=== PATIENT | male | born 1970 | race Caucasian/White ===

== ENCOUNTER 2021-08-17 06:20 | Outpatient (REF) | payer OTHER, SELFPAY ==
[2021-08-17 11:36] LABS: Hematocrit 44.2 % (42-52); Mean Corpuscular HGB Conc 33.9 g/dl (31.0-36.0); Mean Corpuscular Hemoglobin 29.6 pg (27.0-33.0); Mean Corpuscular Volume 87.4 fL (80-98); Mean Platelet Volume 11.8 fL (9.4-12.4); Platelet Count 193 X10*3/uL (160-400); Red Blood Count 5.06 X10*6/uL (4.60-5.80); Red Cell Distribution Width 13.1 % (11.0-16.0); White Blood Count 7.7 X10*3/uL (4.8-10.8)
[2021-08-17 11:43] LABS: Appearance Urine CLEAR; Color Urine YELLOW; Glucose Urine UA NEG (NEG); Leukocyte Esterase Urine NEG (NEG); Nitrite Urine NEG (NEG); Urine Blood NEG (NEG); Urine Ketones NEG (NEG); Urine Protein NEG (NEG-TRACE)
[2021-08-17 12:02] LABS: Alanine Aminotransferase 18 U/L (0-40); Albumin Level 4.6 g/dL (3.5-5.0); Alkaline Phosphatase 47 U/L (39-117); Anion Gap 11 (12-20); Aspartate Amino Transferase 19 U/L (5-37); Bilirubin Total 0.8 mg/dL (0.0-1.0); Blood Urea Nitrogen 20 mg/dL (9-16); Calcium 9.6 mg/dL (8.4-10.2); Carbon Dioxide 29 mmol/L (22-29); Chloride 107 mmol/L (96-108); Cholesterol 177 mg/dL; Estimated Glomerular Filt Rate > 60; Glucose Fasting 101 mg/dL (60-99); HDL Cholesterol 56 mg/dL; LDL Cholesterol Calculated 107 mg/dl; Potassium 4.9 mmol/L (3.3-5.1); Sodium 142 mmol/L (135-145); Total Protein 6.8 g/dL (6.5-8.0); Triglycerides 71 mg/dL
[2021-08-17 12:11] LABS: Prostate Specific Antigen Scr 0.74 ng/mL (<0.05-4.0)
== END 2021-08-17 06:21 | disposition home or self-care (01) ==
LOC: HO.HMGCLDS 06:20
PROVIDERS: PCP Internal Medicine; Visit Provider Internal Medicine
DX: Z00.00 Encounter for general adult medical examination without abnormal findings (principal); Z12.5 Encounter for screening for malignant neoplasm of prostate; N40.0 Benign prostatic hyperplasia without lower urinary tract symptoms
CPT/HCPCS: 36415; 80053; 80061; 81003; 84153; 85027

== ENCOUNTER 2022-08-30 07:21 | Outpatient (REF) | payer OTHER, SELFPAY ==
[2022-08-30 12:28] LABS: Alanine Aminotransferase 18 U/L (0-40); Albumin Level 4.4 g/dL (3.5-5.0); Alkaline Phosphatase 55 U/L (39-117); Anion Gap 13 (12-20); Aspartate Amino Transferase 23 U/L (5-37); Bilirubin Total 0.8 mg/dL (0.0-1.0); Blood Urea Nitrogen 14 mg/dL (9-16); Calcium 9.6 mg/dL (8.4-10.2); Carbon Dioxide 28 mmol/L (22-29); Chloride 105 mmol/L (96-108); Cholesterol 172 mg/dL; Estimated Glomerular Filt Rate > 60; Glucose Fasting 103 mg/dL (60-99); HDL Cholesterol 51 mg/dL; LDL Cholesterol Calculated 105 mg/dl; Potassium 5.4 mmol/L (3.3-5.1); Sodium 141 mmol/L (135-145); Total Protein 6.8 g/dL (6.5-8.0); Triglycerides 82 mg/dL
[2022-08-30 12:30] LABS: PSA,Total (Free>4and<10) 1.58 ng/mL (0.00-4.00)
== END 2022-08-30 07:22 | disposition home or self-care (01) ==
LOC: HO.HMGCLDS 07:21
PROVIDERS: PCP Internal Medicine; Visit Provider Internal Medicine
DX: Z00.00 Encounter for general adult medical examination without abnormal findings (principal); Z12.5 Encounter for screening for malignant neoplasm of prostate; I10 Essential (primary) hypertension
CPT/HCPCS: 36415; 80048; 80053; 80061; 84153

== ENCOUNTER 2022-09-09 06:16 | Outpatient (REF) | payer OTHER, SELFPAY ==
[2022-09-09 11:25] LABS: Potassium 5.1 mmol/L (3.3-5.1)
== END 2022-09-09 06:17 | disposition home or self-care (01) ==
LOC: HO.HMGCLDS 06:16
PROVIDERS: PCP Internal Medicine; Visit Provider Internal Medicine
DX: I10 Essential (primary) hypertension (principal)
CPT/HCPCS: 36415; 84132

== ENCOUNTER 2022-10-04 07:55 | Outpatient (REF) | payer OTHER, SELFPAY ==
--- NOTE | 2022-10-04 11:20 | PFT_ITS ---
Forced vital capacity 92%, FEV1 76%. FEV1/FVC ratio is 64. XAD12-82 is 41% and MVV 82%. Post bronchodilator therapy, there is significant improvement in FEV1 and BYI94-98. Total lung capacity 102%. Residual volume 124%. Diffusion capacity is 80%. CONCLUSION: Sias-ca-rknyovoa degree of obstructive airway disorder with almost complete reversibility after bronchodilator therapy. These findings are consistent with diagnosis of bronchial asthma. Clinical correlation is recommended. MD [facility] / [id number]
== END 2022-10-04 07:56 | disposition home or self-care (01) ==
LOC: HO.RESP 07:55
PROVIDERS: Visit Provider Internal Medicine
DX: J45.909 Unspecified asthma, uncomplicated (principal)
CPT/HCPCS: 94060; 94727; 94729

== ENCOUNTER 2024-02-03 08:49 | Outpatient (AMB) | payer OTHER, SELFPAY ==
[2024-02-03 08:51] VITALS: BP 126/80; PULSE 52; O2SAT 97; BMI 22.4
--- NOTE | 2024-02-03 08:51 | A.OFFPC_ITS ---
Vital Signs 02/03/24 08:51 Height 6 ft 1 in Weight 170 lb BMI 22.4 BP 126/80 Blood Pressure Location Lt brachial Position Sitting Pulse 52 Pulse Source Pulse Oximeter Pulse Oximetry (%) 97 Oxygen Delivery Method Room Air Intake Visit Reasons: Mole on the abdomen changing size itchy Intake Note: Pt is here today for a sick visit. Pt c/o mole on his abdomen. Allergies No Known Allergies Allergy (Verified 02/03/24 08:53) Medication List - Last Reconciled 02/03/24 by Jayde Kate MD albuterol sulfate 90 mcg/actuation (ProAir HFA) 1 inh inhalation QID fluticasone propion-salmeterol 250-50 mcg/dose 1 inh inhalation BID lisinopril 5 mg PO DAILY Tobacco use date assessed: 02/03/24 Dental Screening Dental Screen Date: 02/03/24 Did you have a dental visit in the last 12 months?: Yes Did you have a dental problem in the last 6 months where you did not have access to dental care?: No Was dental information given to patient?: Patient has dentist HPI Mole on the abdomen changing size itchy HPI Details Patient complains of growing skin lesionon the right side on the abdomen. He was evaluated 2 years ago by pediatric audiologist and was told that it was a benign growth. The lesion has been growing recently, becoming irritated, itchy and red. there is no bleeding at the site. Asthma is stable on fluticasone/salmeterol. [facility] Medical History Annual physical exam Asthma BPH (benign prostatic hyperplasia) HTN (hypertension) Surgical History H/O colonoscopy No pertinent past surgical history Family History Father No problems noted. Mother No problems noted. Brother No problems noted. Son No problems noted. Daughter No problems noted. Social History Housing: House Patient Tobacco Use Status: Never used Tobacco e-Cigarette/Vaping Use: Never Used Second Hand Smoke Exposure: No Current occupational status: employed Cognitive needs: No Hearing needs: No Vision needs: Yes Questionnaire PHQ-9 Over the last 2 weeks, how often have you been bothered by any of the following problems? 1. Little interest or pleasure in doing things: not at all 2. Feeling down, depressed, or hopeless: not at all 3. Trouble falling or staying asleep, or sleeping too much: several days 4. Feeling tired or having little energy: several days 5. Poor appetite or overeating: not at all 6. Feeling bad about yourself - or that you are a failure or have let yourself or your family down: not at all 7. Trouble concentrating on things, such as reading the newspaper or watching television: not at all 8. Moving or speaking so slowly that other people could have noticed. Or the opposite - being so fidgety or restless that you have been moving around a lot more than usual: not at all 9. Thoughts that you would be better off or of hurting yourself in some way: not at all Total score: 2 Depression Screening Interpretation: Negative Depression Screening Done: Yes Source: Developed by Drs. Nilson Muñoz, Val White, Tommy duran nd colleagues, with an educational lizezth from [employer]. Thrive Questionnaire Date Thrive assessed: 02/03/24 I am a: Patient What is your living situation today?: I have a steady place to live Within the past 12 months, did the food you bought not last and you didn't have the money to get more?: Never true Within the past 12 months, did you worry whether your food would run out before you got money to buy more?: Never true Do you have trouble paying for medicines?: No Do you have trouble getting transportation to medical appointments?: No Do you have trouble paying your heating and electricity bill?: No Do you have trouble taking care of your child, family member or friend?: No Do you have trouble with day-to-day activities such as bathing, preparing meals, shopping, managing finances, etc.?: No Are you currently unemployed and looking for a job?: No Are you interested in more education?: No Please select the resources that you would like help with: None Currently or been in a relationship where the following occur: no concerns reported THRIVE Score: 0 AUDIT C Alcohol Use Questionnaire (AUDIT-C) 1. How often do you have a drink containing alcohol?: Monthly or less 2. How many drinks containing alcohol do you have on a typical day when you are drinking?: 1 or 2 3. How often do you have six or more drinks on one occasion?: Never Total Score: 1 JANI-7 AMB Questionnaire JANI-7 Date JANI - 7 assessed: 02/03/24 Feeling nervous, anxious, or on edge: 0 = Not at all Not being able to stop or control worryin = Not at all Worrying too much about different things: 0 = Not at all Trouble relaxin = Not at all Being so restless that it is hard to sit still: 0 = Not at all Becoming easily annoyed or irritable: 0 = Not at all Feeling afraid as if something awful might happen: 0 = Not at all Total JANI-7 score (0-4 normal; 5-9 mild; 10-14 moderate; 15-21 severe): 0 Source: Developed by Drs. Nilson Muñoz, Vla White, Tommy Solis and colleagues, with an educational lizzeth from [employer]. Review of Systems Const All systems reviewed & are unremarkable except as noted in HPI and below Reports no additional complaints Eyes Reports no additional complaints ENT Reports no additional complaints Card Reports no additional complaints Resp Reports no additional complaints GI Reports no additional complaints Reports no additional complaints Physical exam (Primary Care) Vital Signs: Last Vital Signs Pulse 52 02/03/24 08:51 BP 126/80 02/03/24 08:51 Pulse Ox 97 02/03/24 08:51 Oxygen Delivery Method Room Air 02/03/24 08:51 BMI result Body Mass Index 22.4 Tobacco/Smoking Status: Tobacco use Status Tobacco use date assessed 02/03/24 02/03/24 08:56 Patient Tobacco Use Status Never used Tobacco 02/03/24 08:56 e-Cigarette/Vaping Use Never Used 02/03/24 08:56 PHQ-9: PHQ-9 Score PHQ-9: Total score 2 02/03/24 08:56 Depression Screening Interpretation: Negative Thrive Assessment: Date of Thrive Assessment Date Thrive assessed 02/03/24 02/03/24 08:56 Currently or been in a relationship where the following occur: no concerns reported Const General: no acute distress Neck Neck: Yes supple Resp Effort & Inspection: normal respiratory effort Auscultation: clear to auscultation bilaterally Cardio Rhythm: regular rhythm Heart sounds: S1 normal heart sound present and S2 normal heart sound present GI Inspection: Yes normal to inspection Palpation (GI): Soft to palpation Skin Other: There is a 2 cm raised smooth surface dark brown lesion with surrounding slight erythema, no ulceration or bleeding Assessment and Plan Assessment & Plan (1) Dysplastic nevus: Code(s): D23.9 - Other benign neoplasm of skin, unspecified Plan: refer to [facility] (2) Annual physical exam: Code(s): Z00.00 - Encounter for general adult medical examination without abnormal findings (3) HTN (hypertension): Code(s): I10 - Essential (primary) hypertension Plan: Continue lisinopril Orders: Orders UA w Microscopic Today I10 - Essential (primary) hypertension, Z00.00 - Encounter for general adult medical examination without abnormal findings Comprehensive [place]. Panel Fast Today I10 - Essential (primary) hypertension, Z00.00 - Encounter for general adult medical examination without abnormal findings Complete Blood Count Auto Diff Today I10 - Essential (primary) hypertension, Z00.00 - Encounter for general adult medical examination without abnormal findings Lipid Panel Today I10 - Essential (primary) hypertension, Z00.00 - Encounter for general adult medical examination without abnormal findings PSA,Total (Free>4and<10) Today I10 - Essential (primary) hypertension, Z00.00 - Encounter for general adult medical examination without abnormal findings Referrals 2 Dermatology Referral D23.9 - Other benign neoplasm of skin, unspecified Medications: Refilled lisinopril 5 mg PO DAILY 90 tabs 3RF fluticasone propion-salmeterol 250-50 mcg/dose 1 inh inhalation BID 180 ea 3RF Coding Level of Care Code Est Pt Level 3 (36808) Diagnoses Dysplastic nevus D23.9 Annual physical exam Z00.00 HTN (hypertension) I10
== END 2024-02-03 10:15 | disposition home or self-care (01) ==
PROVIDERS: PCP Internal Medicine; Visit Provider Internal Medicine
DX: D23.9 Other benign neoplasm of skin, unspecified (principal); Z00.00 Encounter for general adult medical examination without abnormal findings; I10 Essential (primary) hypertension
CPT/HCPCS: 99213

== ENCOUNTER 2024-02-10 06:34 | Outpatient (REF) | payer OTHER, SELFPAY ==
[2024-02-10 10:38] LABS: MANUAL DIFF FLAG NO
[2024-02-10 10:47] LABS: Basophils Absolute Auto 0.1 X10*3/uL (0.0-0.2); Basophils Percent Auto 1.1 % (0-2); Eosinophils Absolute Auto 0.9 X10*3/uL (0.0-0.4); Eosinophils Percent Auto 12.3 % (0-4); Hematocrit 42.8 % (42.0-52.0); Hemoglobin 14.6 g/dl (14.0-18.0); Imm Gran Abs Auto 0.04 X10*3/uL (0.00-0.03); Imm Gran Pct Auto 0.6 % (0.0-0.4); Lymphocytes Absolute Auto 1.6 X10*3/uL (1.2-4.9); Lymphocytes Percent Auto 22.9 % (20-40); Mean Corpuscular HGB Conc 34.1 g/dl (31.0-36.0); Mean Corpuscular Volume 87.9 fL (80.0-98.0); Mean Platelet Volume 11.3 fL (9.4-12.4); Monocytes Percent Auto 13.6 % (2-11); Neutrophils Absolute Auto 3.5 x10*3/uL (2.0-8.3); Neutrophils Percent Auto 49.5 % (45-73); Platelet Count 195 X10*3/uL (160-400); Red Blood Count 4.87 X10*6/uL (4.60-5.80); Red Cell Distribution Width 12.7 % (11.0-16.0)
[2024-02-10 10:58] LABS: Appearance Urine Clear; Color Urine Yellow; Glucose Urine UA Negative (Negative); Leukocyte Esterase Urine Negative (Negative); Nitrite Urine Negative (Negative); Specific Gravity - Urine 1.015 (1.005-1.025); Urine Blood Negative (Negative); Urine Ketones Negative (Negative); Urine Protein Negative (Neg-Trace)
[2024-02-10 11:06] LABS: Bacteria Urine None Seen (None Seen); Hyaline Casts Urine 0-2 /LPF (0-2); RBC Urine 0-2 /HPF (0-2); Squamous Epithelial Cell Urine 0-2 /HPF (0-2); WBC Urine 0-5 /HPF (0-5)
[2024-02-10 11:14] LABS: PSA,Total (Free>4and<10) 2.65 ng/mL (0.00-4.00)
[2024-02-10 12:29] LABS: Alanine Aminotransferase 17 U/L (0-40); Albumin Level 4.3 g/dL (3.5-5.0); Alkaline Phosphatase 48 U/L (39-117); Anion Gap 11 (12-20); Aspartate Amino Transferase 21 U/L (5-37); Bilirubin Total 0.9 mg/dL (0.0-1.0); Blood Urea Nitrogen 13 mg/dL (9-16); Calcium 9.3 mg/dL (8.4-10.2); Carbon Dioxide 28 mmol/L (22-29); Chloride 104 mmol/L (96-108); Cholesterol 158 mg/dL (<200); Estimated Glomerular Filt Rate > 60; Glucose Fasting 91 mg/dL (60-99); HDL Cholesterol 52 mg/dL (>40); LDL Cholesterol Calculated 85 mg/dL (<100); Potassium 4.1 mmol/L (3.3-5.1); Sodium 139 mmol/L (135-145); Total Protein 6.9 g/dL (6.5-8.0); Triglycerides 105 mg/dL (<150)
== END 2024-02-10 06:35 | disposition home or self-care (01) ==
LOC: HO.HMGCLDS 06:34
PROVIDERS: PCP Internal Medicine; Visit Provider Internal Medicine
DX: Z00.00 Encounter for general adult medical examination without abnormal findings (principal); Z12.5 Encounter for screening for malignant neoplasm of prostate; I10 Essential (primary) hypertension
CPT/HCPCS: 36415; 80053; 80061; 81001; 84153; 85025

== ENCOUNTER 2024-02-16 11:27 | Outpatient (AMB) | payer OTHER, SELFPAY ==
[2024-02-16 11:50] VITALS: BP 122/76; PULSE 59; O2SAT 98; BMI 22.4
--- NOTE | 2024-02-16 11:50 | A.OFFPC_ITS ---
Vital Signs 02/16/24 11:50 Height 6 ft 1 in Weight 170 lb BMI 22.4 BP 122/76 Blood Pressure Location Lt brachial Position Sitting Pulse 59 Pulse Source Pulse Oximeter Pulse Oximetry (%) 98 Oxygen Delivery Method Room Air Intake Visit Reasons: Annual PE Intake Note: Pt is here today for PE. Allergies No Known Allergies Allergy (Verified 02/16/24 12:05) Tobacco use date assessed: 02/16/24 Dental Screening Dental Screen Date: 02/03/24 HPI Annual PE HPI Details Pt presents for PE. PFSH Medical History HTN (hypertension) Annual physical exam BPH (benign prostatic hyperplasia) Asthma Surgical History H/O colonoscopy No pertinent past surgical history Family History Father No problems noted. Mother No problems noted. Brother No problems noted. Son No problems noted. Daughter No problems noted. Social History Housing: House Patient Tobacco Use Status: Never used Tobacco e-Cigarette/Vaping Use: Never Used Second Hand Smoke Exposure: No service: No Current occupational status: employed Cognitive needs: No Hearing needs: No Vision needs: Yes Questionnaire Thrive Questionnaire Date Thrive assessed: 02/03/24 JANI-7 AMB Questionnaire JANI-7 Date JANI - 7 assessed: 02/03/24 Source: Developed by Drs. Nilson Muñoz, Val White, Tommy Solis and colleagues, with an educational lizzeth from [employer]. Review of Systems Const All systems reviewed & are unremarkable except as noted in HPI and below Reports no additional complaints Eyes Reports no additional complaints ENT Reports no additional complaints Card Reports no additional complaints Resp Reports no additional complaints GI Reports no additional complaints Reports no additional complaints Musc Reports no additional complaints Physical exam (Primary Care) Vital Signs: Last Vital Signs Pulse 59 02/16/24 11:50 BP 122/76 02/16/24 11:50 Pulse Ox 98 02/16/24 11:50 Oxygen Delivery Method Room Air 02/16/24 11:50 BMI result Body Mass Index 22.4 Tobacco/Smoking Status: Tobacco use Status Tobacco use date assessed 02/16/24 02/16/24 11:51 Patient Tobacco Use Status Never used Tobacco 02/16/24 11:51 e-Cigarette/Vaping Use Never Used 02/16/24 11:51 Thrive Assessment: Date of Thrive Assessment Date Thrive assessed 02/03/24 02/16/24 11:51 Const General: no acute distress HENMT Head: Yes normal to inspection Ears: hearing grossly normal bilaterally Face and sinus: Yes normal facial exam Mouth: Normal oral and palatal mucosa present Eyes General: appearance normal, both eyes and all related structures Neck Neck: Yes no lymphadenopathy and Yes supple Resp Effort & Inspection: normal respiratory effort Auscultation: clear to auscultation bilaterally Cardio Rhythm: regular rhythm Heart sounds: S1 normal heart sound present and S2 normal heart sound present GI Inspection: Yes normal to inspection Palpation (GI): Soft to palpation Percussion: Yes normal to percussion Auscultation: normal bowel sounds Assessment and Plan Assessment & Plan (1) HTN (hypertension): Code(s): I10 - Essential (primary) hypertension Plan: Continue lisinopril (2) Asthma: Code(s): J45.909 - Unspecified asthma, uncomplicated Plan: Continue Symbicort follow-up in 6 months (3) Annual physical exam: Code(s): Z00.00 - Encounter for general adult medical examination without abnormal findings Plan: Well-balanced diet regular physical activity discussed with the patient Coding Level of Care Code Est Pt Prev Care 40-64y(59205) Diagnoses HTN (hypertension) I10 Asthma J45.909 Annual physical exam Z00.00
== END 2024-02-16 12:38 | disposition home or self-care (01) ==
PROVIDERS: PCP Internal Medicine; Visit Provider Internal Medicine
DX: I10 Essential (primary) hypertension (principal); J45.909 Unspecified asthma, uncomplicated; Z00.00 Encounter for general adult medical examination without abnormal findings
CPT/HCPCS: 99396

== ENCOUNTER 2024-07-30 09:31 | Outpatient (AMB) | payer OTHER, SELFPAY ==
[2024-07-30 09:39] VITALS: BP 120/72; PULSE 54; O2SAT 96; BMI 22.6
--- NOTE | 2024-07-30 09:39 | A.OFFPC_ITS ---
Vital Signs 07/30/24 09:39 Height 6 ft 1 in Weight 171 lb BMI 22.6 BP 120/72 Blood Pressure Location Lt brachial Position Sitting Pulse 54 Pulse Source Pulse Oximeter Pulse Oximetry (%) 96 Oxygen Delivery Method Room Air Intake Visit Reasons: 6M F/U Intake Note: Pt is here today for 6 months. Allergies No Known Allergies Allergy (Verified 07/30/24 09:41) Medication List - Last Reconciled 07/30/24 by Jayde Kate MD albuterol sulfate 90 mcg/actuation (ProAir HFA) 1 inh inhalation QID fluticasone propion-salmeterol 250-50 mcg/dose 1 inh inhalation BID lisinopril 5 mg PO DAILY Tobacco use date assessed: 07/30/24 Dental Screening Dental Screen Date: 02/03/24 HPI 4M F/U HPI Details Pt presents for HTN and asthma. [facility] Medical History HTN (hypertension) Annual physical exam BPH (benign prostatic hyperplasia) Asthma Surgical History H/O colonoscopy No pertinent past surgical history Family History Father No problems noted. Mother No problems noted. Brother No problems noted. Son No problems noted. Daughter No problems noted. Social History Housing: House Patient Tobacco Use Status: Never used Tobacco e-Cigarette/Vaping Use: Never Used Second Hand Smoke Exposure: No service: No Current occupational status: employed Cognitive needs: No Hearing needs: No Vision needs: Yes Questionnaire PHQ-9 Over the last 2 weeks, how often have you been bothered by any of the following problems? 1. Little interest or pleasure in doing things: not at all 2. Feeling down, depressed, or hopeless: not at all 3. Trouble falling or staying asleep, or sleeping too much: not at all 4. Feeling tired or having little energy: not at all 5. Poor appetite or overeating: not at all 6. Feeling bad about yourself - or that you are a failure or have let yourself or your family down: not at all 7. Trouble concentrating on things, such as reading the newspaper or watching television: not at all 8. Moving or speaking so slowly that other people could have noticed. Or the opposite - being so fidgety or restless that you have been moving around a lot more than usual: not at all 9. Thoughts that you would be better off or of hurting yourself in some way: not at all Total score: 0 Depression Screening Interpretation: Negative Depression Screening Done: Yes 63136 - PHQ-9 Billing: Yes Source: Developed by Drs. Nilson Muñoz, Vla White, Tommy Solis and colleagues, with an educational lizzeth from [employer]. Thrive Questionnaire Date Thrive assessed: 02/03/24 I am a: Patient What is your living situation today?: I have a steady place to live Within the past 12 months, did the food you bought not last and you didn't have the money to get more?: I choose not to answer this question Within the past 12 months, did you worry whether your food would run out before you got money to buy more?: I choose not to answer this question Do you have trouble paying for medicines?: I choose not to answer this question Do you have trouble getting transportation to medical appointments?: I choose not to answer this question Do you have trouble paying your heating and electricity bill?: I choose not to answer this question Do you have trouble taking care of your child, family member or friend?: I choose not to answer this question Do you have trouble with day-to-day activities such as bathing, preparing meals, shopping, managing finances, etc.?: No Are you interested in more education?: No Please select the resources that you would like help with: None Currently or been in a relationship where the following occur: No concerns reported THRIVE Score: 0 AUDIT C Alcohol Use Questionnaire (AUDIT-C) 1. How often do you have a drink containing alcohol?: 2-4 times a month 2. How many drinks containing alcohol do you have on a typical day when you are drinking?: 1 or 2 3. How often do you have six or more drinks on one occasion?: Never Total Score: 2 JANI-7 AMB Questionnaire JANI-7 Date JANI - 7 assessed: 02/03/24 Feeling nervous, anxious, or on edge: 0 = Not at all Not being able to stop or control worryin = Not at all Worrying too much about different things: 0 = Not at all Trouble relaxin = Not at all Being so restless that it is hard to sit still: 0 = Not at all Becoming easily annoyed or irritable: 0 = Not at all Feeling afraid as if something awful might happen: 0 = Not at all Total JANI-7 score (0-4 normal; 5-9 mild; 10-14 moderate; 15-21 severe): 0 Source: Developed by Drs. Nilson Muñoz, Val White, Tommy Solis and colleagues, with an educational lizzeth from [employer]. Review of Systems Const All systems reviewed & are unremarkable except as noted in HPI and below Eyes Reports no additional complaints ENT Reports no additional complaints Card Reports no additional complaints Resp Reports no additional complaints GI Reports no additional complaints Reports no additional complaints Physical exam (Primary Care) Vital Signs: Last Vital Signs Pulse 54 07/30/24 09:39 BP 120/72 07/30/24 09:39 Pulse Ox 96 07/30/24 09:39 Oxygen Delivery Method Room Air 07/30/24 09:39 BMI result Body Mass Index 22.6 Tobacco/Smoking Status: Tobacco use Status Tobacco use date assessed 07/30/24 07/30/24 09:43 Patient Tobacco Use Status Never used Tobacco 07/30/24 09:43 e-Cigarette/Vaping Use Never Used 07/30/24 09:43 PHQ-9: PHQ-9 Score PHQ-9: Total score 0 07/30/24 09:43 Depression Screening Interpretation: Negative Thrive Assessment: Date of Thrive Assessment Date Thrive assessed 02/03/24 07/30/24 09:43 Currently or been in a relationship where the following occur: No concerns reported Const General: no acute distress HENCT General nose exam: Normal external nose present Throat: Yes posterior oropharynx normal Neck Neck: Yes supple Resp Effort & Inspection: normal respiratory effort Auscultation: clear to auscultation bilaterally Cardio Rhythm: regular rhythm Heart sounds: S1 normal heart sound present and S2 normal heart sound present GI Inspection: Yes normal to inspection Assessment and Plan Assessment & Plan (1) Asthma: Code(s): J45.909 - Unspecified asthma, uncomplicated Plan: Continue Advair (2) Annual physical exam: Code(s): Z00.00 - Encounter for general adult medical examination without abnormal findings (3) HTN (hypertension): Code(s): I10 - Essential (primary) hypertension Plan: Continue lisinopril Orders: Orders Lipid Panel 6 Months I10 - Essential (primary) hypertension, J45.909 - Unspecified asthma, uncomplicated, Z00.00 - Encounter for general adult medical examination without abnormal findings PSA,Total (Free>4and<10) 6 Months I10 - Essential (primary) hypertension, J45.909 - Unspecified asthma, uncomplicated, Z00.00 - Encounter for general adult medical examination without abnormal findings Comprehensive [place]. Panel Fast 6 Months I10 - Essential (primary) hypertension, J45.909 - Unspecified asthma, uncomplicated, Z00.00 - Encounter for general adult medical examination without abnormal findings Complete Blood Count Auto Diff 6 Months I10 - Essential (primary) hypertension, J45.909 - Unspecified asthma, uncomplicated, Z00.00 - Encounter for general adult medical examination without abnormal findings UA CC w/rflx Micro + Cult 6 Months I10 - Essential (primary) hypertension, J45.909 - Unspecified asthma, uncomplicated, Z00.00 - Encounter for general adult medical examination without abnormal findings Medications: New ciclopirox 8% (Ciclodan) 1 appl topical BEDTIME 4 weeks 6.6 mL 3RF Coding Level of Care Code Est Pt Level 3 (59388) Diagnoses Asthma J45.909 Annual physical exam Z00.00 HTN (hypertension) I10
== END 2024-07-30 10:08 | disposition home or self-care (01) ==
PROVIDERS: PCP Internal Medicine; Visit Provider Internal Medicine
DX: J45.909 Unspecified asthma, uncomplicated (principal); Z00.00 Encounter for general adult medical examination without abnormal findings; I10 Essential (primary) hypertension

== ENCOUNTER → 2024-07-30 09:31 | Outpatient (BNVA) | payer OTHER, SELFPAY | PROVIDERS: PCP Internal Medicine; Visit Provider Internal Medicine ==

== ENCOUNTER 2025-03-07 08:41 | Outpatient (REF) | payer OTHER, SELFPAY ==
[2025-03-07 13:11] LABS: MANUAL DIFF FLAG NO
[2025-03-07 13:21] LABS: Basophils Absolute Auto 0.1 X10*3/uL (0.0-0.2); Basophils Percent Auto 1.3 % (0-2); Eosinophils Absolute Auto 0.7 X10*3/uL (0.0-0.4); Eosinophils Percent Auto 9.2 % (0-4); Hematocrit 39.8 % (42.0-52.0); Hemoglobin 13.3 g/dl (14.0-18.0); Imm Gran Abs Auto 0.11 X10*3/uL (0.00-0.03); Imm Gran Pct Auto 1.5 % (0.0-0.4); Lymphocytes Absolute Auto 1.4 X10*3/uL (1.2-4.9); Lymphocytes Percent Auto 18.7 % (20-40); Mean Corpuscular HGB Conc 33.4 g/dl (31.0-36.0); Mean Corpuscular Hemoglobin 29.2 pg (27.0-33.0); Mean Corpuscular Volume 87.3 fL (80.0-98.0); Mean Platelet Volume 10.9 fL (9.4-12.4); Monocytes Absolute Auto 1.2 X10*3/uL (0.1-1.2); Monocytes Percent Auto 15.4 % (2-11); Neutrophils Percent Auto 53.9 % (45-73); Platelet Count 263 X10*3/uL (160-400); Red Blood Count 4.56 X10*6/uL (4.60-5.80); Red Cell Distribution Width 12.9 % (11.0-16.0); White Blood Count 7.5 X10*3/uL (4.8-10.8)
[2025-03-07 13:35] LABS: Appearance Urine Clear; Color Urine Yellow; Glucose Urine UA Negative (Negative); Leukocyte Esterase Urine Negative (Negative); Nitrite Urine Negative (Negative); Specific Gravity - Urine 1.015 (1.005-1.025); Urine Blood Negative (Negative); Urine Ketones Negative (Negative); Urine Protein Negative (Neg-Trace)
[2025-03-07 13:52] LABS: PSA,Total (Free>4and<10) 2.09 ng/mL (0.00-4.00)
[2025-03-07 13:55] LABS: Alanine Aminotransferase 49 U/L (0-40); Albumin Level 4.4 g/dL (3.5-5.0); Alkaline Phosphatase 60 U/L (39-117); Anion Gap 11 (12-20); Aspartate Amino Transferase 44 U/L (5-37); Bilirubin Total 0.9 mg/dL (0.0-1.0); Blood Urea Nitrogen 13 mg/dL (9-16); Calcium 9.4 mg/dL (8.4-10.2); Carbon Dioxide 28 mmol/L (22-29); Chloride 105 mmol/L (96-108); Cholesterol 149 mg/dL (<200); Estimated Glomerular Filt Rate > 60; Glucose Fasting 96 mg/dL (60-99); HDL Cholesterol 44 mg/dL (>40); LDL Cholesterol Calculated 91 mg/dL (<100); Potassium 5.1 mmol/L (3.3-5.1); Sodium 139 mmol/L (135-145); Total Protein 6.9 g/dL (6.5-8.0); Triglycerides 71 mg/dL (<150)
== END 2025-03-07 08:42 | disposition home or self-care (01) ==
LOC: HO.HMGCLDS 08:41
PROVIDERS: PCP Internal Medicine; Visit Provider Internal Medicine
DX: Z00.00 Encounter for general adult medical examination without abnormal findings (principal); I10 Essential (primary) hypertension; N40.0 Benign prostatic hyperplasia without lower urinary tract symptoms; J45.909 Unspecified asthma, uncomplicated; Z79.899 Other long term (current) drug therapy; Z12.5 Encounter for screening for malignant neoplasm of prostate
CPT/HCPCS: 36415; 80053; 80061; 81003; 84153; 84443; 85025; 96127

== ENCOUNTER 2025-03-07 08:41 | Outpatient (AMB) | payer OTHER, SELFPAY ==
[2025-03-07 08:45] VITALS: BP 124/76; PULSE 60; RESP 18; TEMP 36.6; O2SAT 98; BMI 22.4
--- NOTE | 2025-03-07 08:45 | A.OFFPC_ITS ---
Vital Signs 03/07/25 08:45 Height 6 ft 1 in Weight 170 lb BMI 22.4 BP 124/76 Blood Pressure Location Rt brachial Position Sitting Respiration 18 Pulse 60 Pulse Source Pulse Oximeter Temp 97.9 F Temp Source Oral Pulse Oximetry (%) 98 Oxygen Delivery Method Room Air Intake Visit Reasons: Annual PE Intake Note: Pt is here today for PE. Allergies No Known Allergies Allergy (Verified 03/07/25 08:45) Medication List - Last Reconciled 03/07/25 by Jayde Kate MD albuterol sulfate 90 mcg/actuation (ProAir HFA) 1 inh inhalation QID ciclopirox 8% (Ciclodan) 1 appl topical BEDTIME 4 weeks fluticasone propion-salmeterol 250-50 mcg/dose 1 inh inhalation BID lisinopril 5 mg PO DAILY Tobacco use date assessed: 03/07/25 Dental Screening Dental Screen Date: 03/07/25 Did you have a dental visit in the last 12 months?: Yes Did you have a dental problem in the last 6 months where you did not have access to dental care?: No Was dental information given to patient?: Patient has dentist HPI Annual PE HPI Details Patient presents for physical PFSH Medical History HTN (hypertension) Annual physical exam BPH (benign prostatic hyperplasia) Asthma Surgical History (Updated 03/07/25 @ 09:12 by Jayde Kate MD) H/O colonoscopy No pertinent past surgical history Family History Father No problems noted. Mother No problems noted. Brother No problems noted. Son No problems noted. Daughter No problems noted. Social History Housing: House Patient Tobacco Use Status: Never used Tobacco e-Cigarette/Vaping Use: Never Used Second Hand Smoke Exposure: No service: No Current occupational status: employed Cognitive needs: No Hearing needs: No Vision needs: Yes Questionnaire PHQ-9 Over the last 2 weeks, how often have you been bothered by any of the following problems? 1. Little interest or pleasure in doing things: not at all 2. Feeling down, depressed, or hopeless: not at all 3. Trouble falling or staying asleep, or sleeping too much: not at all 4. Feeling tired or having little energy: not at all 5. Poor appetite or overeating: not at all 6. Feeling bad about yourself - or that you are a failure or have let yourself or your family down: not at all 7. Trouble concentrating on things, such as reading the newspaper or watching television: not at all 8. Moving or speaking so slowly that other people could have noticed. Or the opposite - being so fidgety or restless that you have been moving around a lot more than usual: not at all 9. Thoughts that you would be better off or of hurting yourself in some way: not at all Total score: 0 Depression Screening Interpretation: Negative Depression Screening Done: Yes 23528 - PHQ-9 Billing: Yes Source: Developed by Drs. Nilson Muñoz, Val White, Tommy Solis and colleagues, with an educational lizzeth from [employer]. Thrive Questionnaire Date Thrive assessed: 03/07/25 I am a: Patient What is your living situation today?: I have a steady place to live Within the past 12 months, did the food you bought not last and you didn't have the money to get more?: Never true Within the past 12 months, did you worry whether your food would run out before you got money to buy more?: Never true Do you have trouble paying for medicines?: No Do you have trouble getting transportation to medical appointments?: No Do you have trouble paying your heating and electricity bill?: No Do you have trouble taking care of your child, family member or friend?: No Do you have trouble with day-to-day activities such as bathing, preparing meals, shopping, managing finances, etc.?: No Are you currently unemployed and looking for a job?: No Are you interested in more education?: No Please select the resources that you would like help with: None Currently or been in a relationship where the following occur: No concerns reported THRIVE Score: 0 AUDIT C Alcohol Use Questionnaire (AUDIT-C) 1. How often do you have a drink containing alcohol?: Monthly or less 2. How many drinks containing alcohol do you have on a typical day when you are drinking?: 1 or 2 3. How often do you have six or more drinks on one occasion?: Never Total Score: 1 JANI-7 AMB Questionnaire JANI-7 Date JANI - 7 assessed: 03/07/25 Feeling nervous, anxious, or on edge: 0 = Not at all Not being able to stop or control worryin = Not at all Worrying too much about different things: 0 = Not at all Trouble relaxin = Not at all Being so restless that it is hard to sit still: 0 = Not at all Becoming easily annoyed or irritable: 0 = Not at all Feeling afraid as if something awful might happen: 0 = Not at all Total JANI-7 score (0-4 normal; 5-9 mild; 10-14 moderate; 15-21 severe): 0 Source: Developed by Drs. Nilson Muñoz, Val White, Tommy Solis and colleagues, with an educational lizzeth from [employer]. JANI-7 Assessment Billing JANI-7 Assessment Tool: JANI-7 Assessment 29580 Review of Systems Const All systems reviewed & are unremarkable except as noted in HPI and below Eyes Reports no additional complaints ENT Reports no additional complaints Card Reports no additional complaints Resp Reports no additional complaints GI Reports no additional complaints Reports no additional complaints Physical exam (Primary Care) Vital Signs: Last Vital Signs Temp 97.9 F 03/07/25 08:45 Pulse 60 03/07/25 08:45 Resp 18 03/07/25 08:45 BP 124/76 03/07/25 08:45 Pulse Ox 98 03/07/25 08:45 Oxygen Delivery Method Room Air 03/07/25 08:45 BMI result Body Mass Index 22.4 Tobacco/Smoking Status: Tobacco use Status Tobacco use date assessed 03/07/25 03/07/25 08:46 Patient Tobacco Use Status Never used Tobacco 03/07/25 08:46 e-Cigarette/Vaping Use Never Used 03/07/25 08:46 PHQ-9: PHQ-9 Score PHQ-9: Total score 0 03/07/25 09:21 Depression Screening Interpretation: Negative Thrive Assessment: Date of Thrive Assessment Date Thrive assessed 03/07/25 03/07/25 08:46 Currently or been in a relationship where the following occur: No concerns reported Const General: no acute distress HENMT Head: Yes normal to inspection Face and sinus: Yes normal facial exam Mouth: Normal oral and palatal mucosa present Eyes General: appearance normal, both eyes and all related structures Neck Neck: Yes supple Resp Effort & Inspection: normal respiratory effort Auscultation: clear to auscultation bilaterally Cardio Rhythm: regular rhythm Heart sounds: S1 normal heart sound present and S2 normal heart sound present GI Inspection: Yes normal to inspection Palpation (GI): Soft to palpation Percussion: Yes normal to percussion Auscultation: normal bowel sounds Coding Level of Care Code Est Pt Prev Care 40-64y(70851) Diagnoses HTN (hypertension) I10 Annual physical exam Z00.00 BPH (benign prostatic hyperplasia) N40.0 Asthma J45.909 Additional Codes JANI-7 Assessment Billing - JANI-7 Assessment Tool: JANI-7 Assessment 68411 ([id number]) PHQ-9 - 52624 - PHQ-9 Billing: Yes ([id number]) Assessment & Plan Assessment & Plan (1) HTN (hypertension): Code(s): I10 - Essential (primary) hypertension Category: Medical Plan: Continue lisinopril (2) Annual physical exam: Code(s): Z00.00 - Encounter for general adult medical examination without abnormal findings Category: Medical Plan: Well-balanced diet regular physical activity discussed with the patient (3) BPH (benign prostatic hyperplasia): Comment: f/u urologist Code(s): N40.0 - Benign prostatic hyperplasia without lower urinary tract symptoms Category: Medical Plan: Monitor PSA level (4) Asthma: Code(s): J45.909 - Unspecified asthma, uncomplicated Category: Medical Plan: Continue Advair Orders: Orders Comprehensive [place]. Panel Fast Today I10 - Essential (primary) hypertension, N40.0 - Benign prostatic hyperplasia without lower urinary tract symptoms, Z00.00 - Encounter for general adult medical examination without abnormal findings Complete Blood Count Auto Diff Today I10 - Essential (primary) hypertension, N40.0 - Benign prostatic hyperplasia without lower urinary tract symptoms, Z00.00 - Encounter for general adult medical examination without abnormal findings Lipid Panel Today I10 - Essential (primary) hypertension, N40.0 - Benign prostatic hyperplasia without lower urinary tract symptoms, Z00.00 - Encounter for general adult medical examination without abnormal findings Comprehensive [place]. Panel Fast 1 Year I10 - Essential (primary) hypertension, N40.0 - Benign prostatic hyperplasia without lower urinary tract symptoms, Z00.00 - Encounter for general adult medical examination without abnormal findings PSA,Total (Free>4and<10) 1 Year I10 - Essential (primary) hypertension, N40.0 - Benign prostatic hyperplasia without lower urinary tract symptoms, Z00.00 - Encounter for general adult medical examination without abnormal findings UA w Microscopic 1 Year I10 - Essential (primary) hypertension, N40.0 - Benign prostatic hyperplasia without lower urinary tract symptoms, Z00.00 - Encounter for general adult medical examination without abnormal findings PSA,Total (Free>4and<10) Today I10 - Essential (primary) hypertension, N40.0 - Benign prostatic hyperplasia without lower urinary tract symptoms, Z00.00 - Encounter for general adult medical examination without abnormal findings UA and rflx microscopic Today I10 - Essential (primary) hypertension, N40.0 - Benign prostatic hyperplasia without lower urinary tract symptoms, Z00.00 - Encounter for general adult medical examination without abnormal findings TSH reflex Free T4 Today I10 - Essential (primary) hypertension, N40.0 - Benign prostatic hyperplasia without lower urinary tract symptoms, Z00.00 - Encounter for general adult medical examination without abnormal findings Complete Blood Count Auto Diff 1 Year I10 - Essential (primary) hypertension, N40.0 - Benign prostatic hyperplasia without lower urinary tract symptoms, Z00.00 - Encounter for general adult medical examination without abnormal findings Lipid Panel 1 Year I10 - Essential (primary) hypertension, N40.0 - Benign prostatic hyperplasia without lower urinary tract symptoms, Z00.00 - Encounter for general adult medical examination without abnormal findings
== END 2025-03-07 09:45 | disposition home or self-care (01) ==
LOC: HO.HMCC 08:42
PROVIDERS: PCP Internal Medicine; Visit Provider Internal Medicine
DX: I10 Essential (primary) hypertension (principal); Z00.00 Encounter for general adult medical examination without abnormal findings; N40.0 Benign prostatic hyperplasia without lower urinary tract symptoms; J45.909 Unspecified asthma, uncomplicated

== ENCOUNTER 2025-03-22 06:18 | Outpatient (REF) | payer OTHER, SELFPAY ==
[2025-03-22 10:00] LABS: MANUAL DIFF FLAG NO
[2025-03-22 10:10] LABS: Basophils Absolute Auto 0.1 X10*3/uL (0.0-0.2); Hemoglobin 13.2 g/dl (14.0-18.0); Imm Gran Abs Auto 0.04 X10*3/uL (0.00-0.03); Imm Gran Pct Auto 0.7 % (0.0-0.4); Immature Retic Fraction 9.9 % (2.3-13.4); Lymphocytes Absolute Auto 1.2 X10*3/uL (1.2-4.9); Lymphocytes Percent Auto 18.7 % (20-40); Mean Corpuscular HGB Conc 33.8 g/dl (31.0-36.0); Mean Corpuscular Hemoglobin 29.7 pg (27.0-33.0); Mean Corpuscular Volume 87.8 fL (80.0-98.0); Mean Platelet Volume 11.6 fL (9.4-12.4); Monocytes Absolute Auto 0.9 X10*3/uL (0.1-1.2); Monocytes Percent Auto 14.5 % (2-11); Neutrophils Percent Auto 49.1 % (45-73); Platelet Count 176 X10*3/uL (160-400); Red Blood Count 4.44 X10*6/uL (4.60-5.80); Red Cell Distribution Width 13.7 % (11.0-16.0); Retic HGB Equivalent 35.2 pg (30.0-35.0); Reticulocyte Percent 1.9 % (0.5-1.8); Reticulocytes Absolute 0.085 X10*6/uL (0.026-0.095); White Blood Count 6.1 X10*3/uL (4.8-10.8)
[2025-03-22 10:25] LABS: Appearance Urine Clear; Color Urine Yellow; Glucose Urine UA Negative (Negative); Leukocyte Esterase Urine Negative (Negative); Nitrite Urine Negative (Negative); PH 5.5 (5.0-9.0); Specific Gravity - Urine 1.015 (1.005-1.025); Urine Blood Negative (Negative); Urine Ketones Negative (Negative); Urine Protein Negative (Neg-Trace)
[2025-03-22 10:29] LABS: Alanine Aminotransferase 35 U/L (0-40); Albumin Level 4.2 g/dL (3.5-5.0); Alkaline Phosphatase 51 U/L (39-117); Anion Gap 11 (12-20); Aspartate Amino Transferase 31 U/L (5-37); Bilirubin Total 0.8 mg/dL (0.0-1.0); Blood Urea Nitrogen 15 mg/dL (9-16); Calcium 9.2 mg/dL (8.4-10.2); Carbon Dioxide 28 mmol/L (22-29); Chloride 106 mmol/L (96-108); Cholesterol 150 mg/dL (<200); Estimated Glomerular Filt Rate > 60; Glucose Fasting 91 mg/dL (60-99); HDL Cholesterol 46 mg/dL (>40); Iron 76 mcg/dL (45-160); LDL Cholesterol Calculated 89 mg/dL (<100); Percent Iron Saturation 29 % (15-50); Potassium 4.6 mmol/L (3.3-5.1); Sodium 140 mmol/L (135-145); Total Iron Binding Capacity 258 mcg/dL (228-428); Total Protein 6.6 g/dL (6.5-8.0); Triglycerides 76 mg/dL (<150); Unsaturated Iron Binding 182 ug/dL
[2025-03-22 10:34] LABS: Lactate Dehydrogenase 297 U/L (118-273)
[2025-03-22 10:52] LABS: PSA,Total (Free>4and<10) 1.26 ng/mL (0.00-4.00)
[2025-03-22 11:05] LABS: Folate 13.7 ng/mL (> or = 4.0); Vitamin B12 396 pg/mL (200-900)
== END 2025-03-22 06:19 | disposition home or self-care (01) ==
LOC: HO.HMGCLDS 06:18
PROVIDERS: PCP Internal Medicine; Visit Provider Internal Medicine
DX: Z00.00 Encounter for general adult medical examination without abnormal findings (principal); D64.9 Anemia, unspecified; J45.909 Unspecified asthma, uncomplicated; I10 Essential (primary) hypertension; Z12.5 Encounter for screening for malignant neoplasm of prostate
CPT/HCPCS: 36415; 80053; 80061; 81003; 82607; 82746; 83540; 83615; 84153; 85025; 85045

== ENCOUNTER 2025-10-16 06:25 | Outpatient (REF) | payer OTHER, SELFPAY ==
--- OUTSIDE RECORDS SUMMARY | 2025-10-14 08:19 | XMS_ITS | Continuity of Care Document ---
Author Organization [facility] Address [address] [place] [address] [address] [place] [id number] Phone Care Team Providers Care Jewelry Bench Molder Name Role Phone Tasha Lucero DO Unavailable Unavailabl e Advance Directives Directive Yes / No Effective Date File Name No Information Encounters Encounter Description Practice Location Reason(s) For Visit Diagnoses Date Provider Encounter Disposition [facility], [address] [place] [address] Dr Leiva [address], [id number], [place] tel:[phone] [facility] No Information 5 Nic HERNANDEZ Omof[address]ari n. [address] [facility] [address], [place], [id number] , [place]. tel:[phone] [facility], [address] [place] [address] Dr Leiva [address] [place], [id number], [place] tel:[phone] [facility] [place] [facility] [place] Varicose veins of bilateral lower extremities with other complications Essential (primary) hypertension 5 Leo SANTANA, RVT, RPKIRILL Devine. [address] [facility] [address], [place], [place], [id number] , [place]. tel:[phone] [facility], [address] [place] [address] Dr Leiva [address] [place], [id number], [place] tel:[phone] [facility] [place] Varicose veins of bilateral lower extremities with other complications Essential (primary) hypertensionP ain in left legCramp and spasm Oct-2 1-202 5 Leo SANTANA RVT, DEBORA Devine. [address] [facility], [address], [place], [place], [id number] , [place]. tel:[phone] [facility], [address] [facility] [address], [place], [id number], [place] tel:[phone] R - [facility] Chronic venous hypertension (idiopathic) with other complications of bilateral lower extremity 5 Leo SANTANA RVT, DEBORA Devine. [address] [facility], [address], [place], [id number] , [place]. tel:[phone] Family History Family Member Type Diagnosis Age At Onset No Information Payers Payer name Insurance type Identifiers Authorization(s) Com [employer] [place] [employer] riber ID: [id number] Name: Coverage Status Eligibility Check on: UnknownRelationship to Subscriber: selfPayer Address: [facility], [address], [place], [address], [facility] Phone: [phone] Social History Type Description Quantity Date Captured Comments Sex Male Smoking Status No Information Current Gender Male (finding) Chief Complaint And Reason For Visit No Information Plan Of Treatment Date Type Action Status Goal Diet education completed Referral Ordered: Weight management: Referral to physician timeframe: 3 Months (related to Body mass index (BMI) 22.0-22.9, adult) ordered Appointment Erlin Macias BOOKED Appointment Erlin Macias (pt Request) BOOKED Appointment Erlin Macias BOOKED Appointment Erlin Macias BOOKED Appointment Erlin Macias BOOKED Appointment Erlin Macias BOOKED Appointment Erlin Macias BOOKED Appointment Erlin Macias BOOKED History Of Present Illness Encounter Date Complaint History Of Prese nt Illness No Information Functional Status Date Description Comments No Information Instructions Date Instruction Additional Infor estuardo Pre and post instruc tions reviewed and provided Related to Varicose veins of bilateral lower extremities with other complications Patient education booklet given Related to Varicose veins of bilateral lower extremities with other complications Pre and post instruc tions reviewed and provided Related to Varicose veins of bilateral lower extremities with other complications Patient education booklet given Related to Varicose veins of bilateral lower extremities with other complications Lifestyle education Related to B michelle mass index (BMI) 22.0-22.9, adult Giving Encouragement to exercise Related to Body mass index (BMI) 22.0-22.9, adult Diet education Related to Body mass index (BMI) 22.0-22.9, adult Assessments Type Assessment Date No Information
--- OUTSIDE RECORDS SUMMARY | 2025-10-16 06:29 | XMS_ITS ---
Author Name Layne Oswald Address Unknown Organization [facility] Care Team Providers Care Development Advisor Name Role Phone Unavailable Primary Care Physician Unavailab le History Of Present Illness This is a 55 year old male who is an established patient being seen for a chief complaint of a naildystrophy, located on the fingernails and toenails. The affected nail(s) are discolored, thickened,and yellow. He has had nail problems for 1 year. He is currently on the following treatments: ciclopirox lacquer (rx???d by PCP). Medications Medication Generic Name RxNorm Strength Strength Unit Route Dose Dose Form Frequency Date Started Date Ended Status Indication Sig Advair Diskus fluticas one propion- salmeter ol 100-50 mcg/dose Inhala tion 2 Blist er, With Inhal ation Devic e BID active ADVAIR DISKU AER 250/50 NULL 05/11/20 13 active BUPROPN HCL TAB 150MG XL NULL 05/11/20 13 active BUPROPN HCL TAB 300MG XL NULL 05/11/20 13 active Econazole Nitrate NULL 02/22/20 13 suspend ed GABAPENTIN CAP 300MG NULL 13 active TRAMADOL HCL TAB 50MG NULL 05/11/20 13 active Problems Problem Code Type Status Date of Diagnosis Da te of Resolution Onychomycosis caused by dermatophyte (disorder) [id number](SN OMED) Diagnosis active 10/15/2025 Dystrophia unguium (disorder) 34419395(SNO MED) Diagnosis active 10/15/2025 Results No data Encounters Service provided at [facility], [address] [place] [address], [address], [place], [place] [id number]. Office phonenumber is [phone]. Office fax number is [phone]. Encounter Diagnosis Location Date / Time Type Disc harge Status Onychomycosis (B35.1)Habit T ic Deformity (L60.3) [facility] 10/15/2025 19:30:00 [facility] [id number] Reason For Referral No data Procedures Procedure Date Documentation of past medical history (p rocedure) Review Of Systems Provider reviewed on Oct 15, 2025.A focused review of systems was performed including Integumentary.No Problems With Healing And No Problems With Scarring (hypertrophic Or Keloid). Assessment 1.Onychomycosis, Status: Inadequately ControlledCounselingPrescription: terbinafine HCl 250 mg tablet POPrescription Medication Management: toenail; toenail; toenail; Initiate Treatment - :Terbinafine HCl 250 mg tablet- Take 1 tablet PO with food daily.; Plan - :Chronic Onychomycosis involving all toenails s/p topical antifungal use for over one yearPatient is motivated to treat; takes no other medications and denies liver or kidney disease Recommend to initiate terbinafine 250 mg PO daily ?? 30 days; intended course 90 days pending monitoring.Obtain baseline labs prior to initiation; monitorduring therapy.FU in 3 months for recheck.;.Order Tests2.Habit Tic DeformityCounseling Plan of Care Future visit for 01/07/2026 - Follow up in 3 months for: Focused Visit - 15 minutes. Other Instructions: recheck visit. Other Instructions: recheck visit. Code Detail Instructions [id number] Comp. Metabolic Panel (14) Decem 2024 [id number] terbinafine HCl 250 mg tablet Ta ke 1 tablet PO with food daily. Instructions * I counseled the patient regarding the following:Skin care: Onychomycosis rarely responds to prolonged use of topical anti-fungal agents. Oral antifungal agents offer a higher cure rate, but relapses occur in 50% of patients.Expectations: Onychomycosis is a fungal infection of the nail plate. Oral therapy is more effective than topical therapy, but serious side effects such as liver toxicity, bonemarrow suppression and severe rashes may ensue with systemic treatment. Relapses occur in 50% of patients.The recommended first line treatment is topical anti fungal paired with frequent nail trimming .Contact office if: Patient develops a side effect from treatment.I recommended the following: Vinegar Soaks - Recommend white vinegar soak in warm water TIW until healthy nail fully grows in * I counseled the patient regarding the following:Nail care: Avoiding trauma to the nail and cuticle is essential for healing. Keratolytic agents can smooth out dystrophic nails.Expectations: Habit TicDeformity results from habitually rubbing the nail or manipulating the proximal nail fold. It may take months for nails to return to normal.Contact office if: Your nails worsen or fail improve after several months. Social History Code Activity Start Date End Date [id number] (SNOMED) Former smoker Sex Male Sexual orientation Unspecified Gender identity Unspecified Vital Signs No data Insurances Coverage Status Coverage Type Relationship to Subscriber Member Identifier Subscriber Identifier Group Identifier Payer Identifier Inactive 1 Self [id number] Active Self [id number] Inactive 2 Self [id number]
[2025-10-16 11:22] LABS: Alanine Aminotransferase 24 U/L (0-40); Albumin Level 4.4 g/dL (3.5-5.0); Alkaline Phosphatase 49 U/L (39-117); Anion Gap 9 (12-20); Aspartate Amino Transferase 27 U/L (5-37); Blood Urea Nitrogen 13 mg/dL (9-16); Calcium 9.0 mg/dL (8.4-10.2); Carbon Dioxide 28 mmol/L (22-29); Chloride 106 mmol/L (96-108); Estimated Glomerular Filt Rate > 60; Potassium 3.8 mmol/L (3.3-5.1); Sodium 139 mmol/L (135-145); Total Protein 6.6 g/dL (6.5-8.0)
== END 2025-10-16 06:26 ==
LOC: HO.HMGCLR 06:25
PROVIDERS: PCP Internal Medicine; Visit Provider Nurse Practitioner Family
DX: B35.1 Tinea unguium (principal)
CPT/HCPCS: 36415; 80053